=== PATIENT | female | born 1985 | race Caucasian/White ===

== ENCOUNTER 2018-08-01 13:08 | Outpatient (CLI) | payer MEDICAID ==
[~2018-08-01] VITALS: Ht 149.9 cm; Wt 70.0 kg
[~2018-08-01 13:08] MED LIST: CETI10CA PO; DM/P295L11 PO; GUAI118L22 PO; GUAI118L94 PO; HYDR-3498 PO; IBUP-1542 PO; NIFE10CA PO; ONDA4TAB35 PO; PRENAT PO
[2018-08-01 13:15] VITALS: Ht 149.9 cm; Wt 70.0 kg
--- NOTE | 2018-08-01 15:56 | TRIAGE ---
OB Triage Datetime Report Generated by CPN: 08/01/2018 15:56 Datetime: 08/01/2018 15:52 Stage of : OB Triage Maternal Assessment Level of Consciousness: Fully Conscious DTR's/Clonus: DTRs 1+ Headache: Denies Breath Sounds, Left: Clear and Equal Breath Sounds, Right: Clear and Equal Nausea/Vomiting: Denies RUQ Epigastric Pain: Denies Labor Evaluation Frequency: X2 Monitor Mode: External Duration (sec)2399: 80-110 Quality: Mild Pattern: Normal: <= 5 Contractions in 10 Minutes Resting Tone [place]: Relaxed Heart Rate FHR Baseline Rate: 135 Monitor Mode: External US Variability: Moderate 6-25 bpm Accelerations: 15X15 Decelerations: None Pain Assessment Pain Scale: 0 Pain Presence: None/Denies Pain Type: N/A Pain Goal: 3 Vaginal Exam Membrane Status: Intact Datetime: 08/01/2018 15:38 Maternal Assessment Level of Consciousness: Fully Conscious DTR's/Clonus: DTRs 1+ Headache: Denies Blurred Vision: No Respiratory Effort: Unlabored Breath Sounds, Left: Clear and Equal Breath Sounds, Right: Clear and Equal Nausea/Vomiting: Denies RUQ Epigastric Pain: Denies Facial Edema: None Labor Evaluation Frequency: X2 Monitor Mode: External Duration (sec)2399: 80-110 Quality: Mild Pattern: Normal: <= 5 Contractions in 10 Minutes Resting Tone [place]: Relaxed Heart Rate FHR Baseline Rate: 135 Monitor Mode: External US Variability: Moderate 6-25 bpm Accelerations: 15X15 Decelerations: None Category: Category I Pain Assessment Pain Scale: 0 Pain Presence: None/Denies Pain Type: N/A Pain Goal: 3 Vaginal Exam Membrane Status: Intact Datetime: 08/01/2018 13:06 Time of Arrival: 08/01/2018 13:06 EGA: 34.5 Arrived By: Ambulatory Arrived From: Home Chief Complaint: PT CAME IN FOR NST AND BPP FOR ELEVATED INHIBIN, DENIES ANY PROBLEM AT THIS TIME A ND STATES + FM Movement: Present Contractions: Denies/Absent Rupture of Membranes: Denies Vaginal Discharge: Denies Recent Sexual Intercouse: Denies Abdominal Trauma: Not Applicable Additional Patient Complaints: NONE Time Provider Notified: 08/01/2018 13:30 Provider Notified: NOMI Initial Plan: NST AND BPP
--- NOTE | 2018-08-01 15:59 | PN ---
Triage Information Date/Time August 01, 2018 Reason for visit: elevated inhibin Weeks of Gestation 34w 5d /Para 3/2 Diabetes: none Hypertention: none Additional information PMHx: none. POBHx: x 2. PSHx: none. NKDA Objective BP 101/54 T= 98.6 Heart Rate: 130's Heart Rate Comments Accels to 150 BPM. No decels. Contractions: >10 Minutes Apart (2 UC's in one hour.) Results/Medications Imaging Results BPP 8/8 with an AVL of 13.9 cm VTX. Disposition: Discharge Assessment/Plan A: IUP at 34w 5d. Elevated inhibin. P: PT to be d/c'ed home and to f/u at the NST as scheduled 08/03. kick counts reviewed with the pt. LEI KWONG MD August 01, 2018 15:59
== END 2018-08-01 15:55 | disposition home or self-care (01) ==
LOC: OBT 13:08 → L-D 13:09 → OBT 15:55
PROVIDERS: ATTEND Obstetrics & Gynecology
DX: O12.13 Gestational proteinuria, third trimester (principal); Z3A.34 34 weeks gestation of pregnancy
CPT/HCPCS: 76818; Z7500; G0463

== ENCOUNTER 2018-08-16 13:16 | Inpatient (IN) | payer MEDICAID ==
[~2018-08-16] VITALS: Ht 149.9 cm; Wt 71.4 kg
[~2018-08-16 13:16] MED LIST changes: -CETI10CA PO; -DM/P295L11 PO; -GUAI118L22 PO; -GUAI118L94 PO; -HYDR-3498 PO; -IBUP-1542 PO; -NIFE10CA PO; -ONDA4TAB35 PO
--- NOTE | 2018-08-16 13:21 | NSTRPT ---
NST Information Datetime Report Generated by CPN: 08/16/2018 13:20 Datetime: 08/13/2018 10:40 NST Information EGA: 36.3 Test Number: 7 Time on Monitor: 08/13/2018 10:57 Time off Monitor: 08/13/2018 11:27 NST Duration (Min): 30 Reason for NST: Other Reason for NST Other: Elevated Inhibin Test and Monitor Explained: Monitor Explained; Test Explained; Verbalized Understanding Pulse: 100 Resp: 18 SBP: 102 DBP: 59 Test Evaluation NST Interventions: None Patient States Movement: Present Contraction Frequency: none FHR Baseline : 130 Variability: Moderate 6-25bpm Accelerations: 15X15 Decelerations: None FHR Category: Category I NST Results: Reactive Comments: PT TO U/S VAL 11.9 CM CEPHALIC Electronically Signed By E-Signature: with User ID: [id number] Datetime: 08/10/2018 10:30 NST Information EGA: 36.0 NST Duration (Min): 29 Datetime: 08/06/2018 13:33 NST Information EGA: 35.3 NST Duration (Min): 28 Datetime: 08/03/2018 08:24 NST Information EGA: 35.0 NST Duration (Min): 52 Datetime: 07/30/2018 08:22 NST Information EGA: 34.3 NST Duration (Min): 40 Datetime: 07/27/2018 08:42 NST Information EGA: 34.0 NST Duration (Min): 24 Datetime: 07/23/2018 09:45 NST Information EGA: 33.3 NST Duration (Min): 29
[2018-08-16 13:55] VITALS: BP 84/53; PULSE 92; RESP 18
[2018-08-16] MEDS ORDERED: CALC600T24 PO (13:57)
[2018-08-16] MEDS ORDERED: URSO300C3 PO (13:59)
[2018-08-16] MEDS ORDERED: CETI5SOL PO (13:59)
--- NOTE | 2018-08-16 19:05 | HP ---
Date/Time of Note Date/Time of Note DATE: 08/16/18 TIME: 19:00 OB - History Hx of Present Free Text/Dictation 32-year-old female 3 para 2 admitted for observation and antepartum testing because of elevated bile acids during and during antepartum testing had heart tone deceleration Last Menstrual Period: Dec 01, 2017 Estimated Due Date: Sep 07, 2018 : 3 Para: 2 Care: Good Care Ultrasounds: Normal mid trimester US Obstetrical Complications: Other (Elevated inhibin level) Medical Complications: None Past Family/Social History * Past Medical, Surgical, Family and Obstetric Histories reviewed from chart. Blood Type: O+ Rubella: immune RPR/VDRL: Negative GBS Status: Unknown HBsAG: Negative OB Admission Exam Vital Signs Vital Signs Vital Signs Date Temp Pulse Resp B/P (MAP) Pulse Ox O2 O2 Flow FiO2 Time Delivery Rate 08/16/18 97.7 92 18 84/53 (63) 96 Room Air 13:55 Physical Exam HEENT: WNL Heart: Rhythm Normal Lungs: Clear, Equal Abdomen: WNL Extremities: Normal Reflexes: Normal Cervical Dilatation: None Effacement: 0% Station: -3 Membranes: Intact Heart Rate: 140's Accelerations: Accelerations Present Decelerations: No Decelerations Varibility: Marked Contractions on Admission: None Last 72 hours Lab Results CBC & BMP 08/16/18 15:00 Liver Function Test 08/16/18 15:00 Alanine Aminotransferase (ALT/SGPT) 16 Albumin 3.3 Alkaline Phosphatase 136 H Aspartate Amino Transf (AST/SGOT) 22 Direct Bilirubin 0.00 Total Protein 6.8 OB Assessment/Plan Other Assessment: Cholestasis of 36 and 5 or 36 and 6 days gestation Other plan: Will induce labor at 37 weeks Continue in-house observation YANNI HARVEY MD Aug 16, 2018 19:05
[2018-08-16] MEDS ORDERED: BUTORPHANOL 2 MG INJ IV PRN (19:30)
[2018-08-16] MEDS ORDERED: METHYLERGONOVINE 0.2 MG INJ IM PRN (19:30)
[2018-08-16] MEDS ORDERED: LIDOCAINE 1% (MPF) 30 ML INJ INJ PRN (19:30)
[2018-08-16] MEDS ORDERED: IBUPROFEN 600 MG TAB PO PRN (19:30)
[2018-08-16] MEDS ORDERED: OXYTOCIN 30 UNITS/LR 500 ML IV PRN (19:30)
[2018-08-16] MEDS ORDERED: CARBOPROST 250 MCG INJ IM PRN (19:30)
[2018-08-16] MEDS ORDERED: OXYTOCIN 30 UNITS/LR 500 ML IV SCH ×2 (19:30)
[2018-08-16] MEDS ORDERED: MISOPROSTOL 200 MCG TAB PR PRN (19:30)
[2018-08-16] MEDS: LACTATED RINGER'S 1,000 ML IV SCH ×2 (21:00→23:07)
[2018-08-16] MEDS: COLESEVELAM 625 MG TAB PO SCH (21:00)
[2018-08-16] MEDS: URSODIOL 300 MG CAP PO SCH (21:00)
[2018-08-16] MEDS ORDERED: LACTATED RINGER'S 1,000 ML IV PRN (21:03)
[2018-08-17] MEDS: COLESEVELAM 625 MG TAB PO SCH ×2 (02:59→10:06)
[2018-08-17] MEDS: LACTATED RINGER'S 1,000 ML IV SCH ×2 (07:00→16:40)
[2018-08-17] MEDS: URSODIOL 300 MG CAP PO SCH (09:50)
[2018-08-17] MEDS ORDERED: DIPHENHYDRAMINE 50 MG INJ IV PRN (11:00)
[2018-08-17] MEDS: MISOPROSTOL 50 MCG CAPSULE PO SCH ×4 (11:32→23:30)
--- NOTE | 2018-08-17 14:04 | CONS ---
DATE OF ADMISSION: 08/16/2018 DATE OF CONSULTATION: 08/17/2018 HISTORY OF PRESENT ILLNESS: The patient is currently at 37 weeks, was admitted secondary to generali zed itching. Her bio panel apparently is normal, so is her liver function tests; however. Given the gestational age and possibility of cholestasis, as I cannot see any other reason for her generalized itching, I do recommend delivery secondary to risk of IUFD. Dictated By: AXEL LEYVA MD [facility] Conf#: [id number] DID#: [id number] CC: YANNI HARVEY MD;*EndCC*
--- NOTE | 2018-08-17 14:58 | PN ---
Date/Time of Note Date/Time of Note DATE: 08/17/18 TIME: 14:56 OB Subjective Subjective Subjective Complaint of minimal uterine contractions OB Objective Objective Objective Vital signs are stable in general physical exam is unchanged Cervix is long and 1 cm Perinatologist was contacted in regards to normal levels of bile acids and normal CMP and existence of one variable deceleration upon entry to the hospital Recommended delivery regardless because of symptomatic patient and existence of variable deceleration of heart tones at 37 weeks OB Assessment/Plan Reason for admission: induction of labor Other Assessment: 37+ weeks gestation in variable deceleration of heart tones with a possible elevated bile acids Other plan: Continue with Cytotec induction of labor YANNI HARVEY MD Aug 17, 2018 14:58
[2018-08-18] MEDS ORDERED: OXYTOCIN 30 UNITS/LR 500 ML IV SCH (00:57)
[2018-08-18] MEDS: LACTATED RINGER'S 1,000 ML IV* SCH ×5 (00:57→19:36)
--- NOTE | 2018-08-18 00:57 | LDN ---
Date/Time of Note Date/Time of Note DATE: 08/18/18 TIME: 00:55 Delivery Summary Weeks of Gestation Term gestation Placenta Delivered: Spontaneously Meconium: none Episiotomy: No Anesthesia type: None Estimated blood loss: 100 Sponge & Needle done & correct: Yes All needle counts correct: Yes Any foreign bodies felt in the: No Delivery Information Sex Sex: female Apgars 1 Minute: 8 5 Minute: 9 Suctioning Nose & mouth suctioned at helen: Yes Delee suction performed: No Umbilical Cord Umbilical cord with: 3 Vessels Cord presentations: no nuchal cord Cord Blood was obtained: Yes Mother & Baby Disposition Disposition Baby's weight 6 pounds 9 ounces/ 2990 g Mom & Baby to Maternity; Good: Yes Baby to NICU: No Copies To: CC: YANNI HARVEY MD ; LORRAINE PLUMMER MD Aug 18, 2018 00:57
[2018-08-18] MEDS ORDERED: BENZOCAINE 20% 56 ML SPRAY TOP PRN (01:00)
[2018-08-18] MEDS ORDERED: ACETAMINOPHEN 325 MG TAB PO PRN ×2 (01:00)
[2018-08-18] MEDS ORDERED: SENNA/DOCUSATE NA (8.6MG/50MG) TAB PO PRN (01:00)
[2018-08-18] MEDS ORDERED: CARBOPROST 250 MCG INJ IM PRN (01:00)
[2018-08-18] MEDS ORDERED: METHYLERGONOVINE 0.2 MG INJ IM PRN (01:00)
[2018-08-18] MEDS ORDERED: ONDANSETRON 4 MG INJ IV PRN (01:00)
[2018-08-18] MEDS ORDERED: OXYTOCIN 30 UNITS/LR 500 ML IV PRN (01:00)
[2018-08-18] MEDS ORDERED: MAGNESIUM HYDROXIDE 30ML CUP PO PRN (01:00)
[2018-08-18] MEDS ORDERED: WITCH HAZEL/GLYCERIN PAD PR PRN (01:00)
[2018-08-18] MEDS ORDERED: LANOLIN HPA 1 PKT TOP PRN (01:00)
[2018-08-18] MEDS ORDERED: MISOPROSTOL 200 MCG TAB PR PRN (01:00)
[2018-08-18] MEDS ORDERED: DIBUCAINE 1% 30 GM OINT TOP PRN (01:00)
[2018-08-18] MEDS ORDERED: OXYCODONE/ASPIRIN (4.88/325) TAB PO PRN ×2 (02:00)
[2018-08-18 02:10] VITALS: BP 116/56; PULSE 67; RESP 18
[2018-08-18 08:00] VITALS: BP 94/50; PULSE 74; RESP 18
[2018-08-18] MEDS: IBUPROFEN 600 MG TAB PO PRN ×2 (10:03→17:25)
[2018-08-18 15:33] VITALS: BP 99/50; PULSE 68; RESP 20
[2018-08-18 21:15] VITALS: BP 104/64; PULSE 65; RESP 18
[2018-08-19 04:00] VITALS: BP 99/55; PULSE 55; RESP 17
[2018-08-19] MEDS: IBUPROFEN 600 MG TAB PO PRN ×2 (05:30→15:55)
[2018-08-19 09:54] VITALS: BP 122/78; PULSE 59
--- NOTE | 2018-08-19 13:25 | DS ---
Date/Time of Note Date/Time of Note Home today or next day DATE: 08/19/18 TIME: 13:22 Obstetrical Discharge Record Final Diagnosis Final Diagnosis: Term delivered Other Final Diagnosis Status post vaginal delivery Vaginal Delivery Obstetrical Delivery: Spontaneous Complications Augmentation: Yes Induction: Yes Condition on Discharge Physical Assessment Last Vitals: See nurse's note Voiding: Yes Bowel Movement: Yes Breast: Soft, non-tender, Filling Fundus: Firm Abdomen and Incision: Abdomen is soft fundus is firm Episiotomy: Perineum is clean Calf Tenderness: No Patient Condition: Good YANNI HARVEY MD Aug 19, 2018 13:25
--- NOTE | 2018-08-19 13:26 | PD.PPDC ---
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 Discharge Instruction Provider Information Physician Information See nurse's notes Diagnosis Ibibo2Lb Final Diagnosis: Thdvl4l Status post vaginal delivery Condition [id number] Patient Condition: Jzbpt6u Good Diet Idlqi1Fp Diet: Qqgug3k Resume Regular Diet Activity/Restrictions [id number] Activity: [id number] Normal Activity May Shower Oyhez2Za Restrictions: Omulo4i Nothing in the Vagina [id number] Return to Work or School: Oezwz5c Oct 04, 2018 Follow-up Follow-up with Physician: 2, 4, Week/Weeks (Clinic) Return to clinic for [id number] OB Instructions: Rqmzd4b Breast Tenderness Depression Comment: Pelvic rest for 6 YANNI HARVEY MD Aug 19, 2018 13:26
[2018-08-19] MEDS ORDERED: IBUP-1542 PO (13:27)
[2018-08-19 16:43] VITALS: BP 139/183; PULSE 80; RESP 18
[2018-08-19 20:15] VITALS: BP 107/54; PULSE 65; RESP 18
[2018-08-20] MEDS: IBUPROFEN 600 MG TAB PO PRN ×3 (00:03→12:38)
[2018-08-20 03:26] VITALS: BP 117/57; PULSE 63; RESP 17
[2018-08-20 08:45] VITALS: BP 107/53; PULSE 65; RESP 18
--- NOTE | 2018-08-21 16:38 | DELSUM ---
Delivery Summary A-C Datetime Report Generated by CPN: 08/21/2018 16:38 DELIVERY PERSONNEL Internal Sales Engineer: Brandi Murray MATERNAL INFORMATION Delivery Anesthesia: None Medications in Delivery: 30U PITOCIN WITH LR Delivery QBL (ml): 100 Placenta Cultured: No Maternal Complications: Other Other Maternal Complications: CHOLEOSTASIS LABOR SUMMARY EDC: 09/07/2018 00:00 No. Babies in Womb: 1 Attempted: No Labor Anesthesia: None LABOR INFORMATION Reason for Induction: Not Applicable Reason for Induction- Other: CHOLESTASIS Onset of Labor: 08/17/2018 11:30 Complete Dilatation: 08/18/2018 00:19 Cervical Ripening Agents: Cytotec @ Oxytocin: N/A Group B Beta Strep: Negative Antibiotics # of Doses: 0 Steroids Given: None Reason Steroids Not Administered: Not Applicable MEMBRANES Membranes Rupture Method: Artificial Rupture of Membranes: 08/18/2018 00:31 Length of Rupture (hr): 0.05 Amniotic Fluid Color: Clear Amniotic Fluid Amount: Moderate Amniotic Fluid Odor: None STAGES OF LABOR Stage 1 hr: 12 Stage 1 min: 49 Stage 2 hr: 0 Stage 2 min: 15 Stage 3 hr: 0 Stage 3 min: 5 Total Time in Labor hr: 13 Total Time in Labor min: 9 VAGINAL DELIVERY Episiotomy: None Laceration Extension: N/A Laceration Type: None Laceration Repair: Not Applicable Initial Vag Sponge Count: 10 Final Vag Sponge Count: 10 Initial Vag Sharps Count: 1 Final Vag Sharps Count: 1 Sponge Count Correct: Yes; Vaginal Sweep Performed Sharps Count Correct: Yes BABY A INFORMATION Infant Delivery Date/Time: 08/18/2018 00:34 Method of Delivery: Vaginal Born in Route : No : N/A Forceps: N/A Vacuum Extraction: N/A Shoulder Dystocia : N/A SHOULDER DYSTOCIA BABY A Infant Delivery Date/Time: 08/18/2018 00:34 PRESENTATION/POSITION BABY A Presentation: Cephalic Cephalic Presentation: Vertex Vertex Position: Left Occipital Anterior Breech Presentation: N/A PLACENTA INFORMATION BABY A Placenta Delivery Time : 08/18/2018 00:39 Placenta Method of Delivery: Spontaneous Placenta Status: Delivered SCORES BABY A Heart Rate 1 min: >100 bpm Resp Effort 1 min: Good Cry Reflex Irritability 1 min: Cough/Sneeze/Pulls Away Muscle Tone 1 min: Active Motion Color 1 min: Blue/Pale Resuscitation Effort 1 min: Tactile Stimulation SCORE 1 MIN: 8 Heart Rate 5 min: >100 bpm Resp Effort 5 min: Good Cry Reflex Irritability 5 min: Cough/Sneeze/Pulls Away Muscle Tone 5 min: Active Motion Color 5 min: Body [place], Extremit Blue Resuscitation Effort 5 min: Tactile Stimulation SCORE 5 MIN: 9 INFORMATION BABY A Gestational Age at Delivery: 37.1 Gestational Status: Early Term- 37- 38.6 Weeks Infant Outcome : Liveborn Condition : Stable Sex: Female IDENTIFICATION/MEDS BABY A ID Band Number: [id number] ID Band Location: Right Leg; Left Arm Sensor Applied: Yes Sensor Number: [id number] Sensor Location : Cord Clamp Vitamin K Given : Not Given Erythromycin Given: Not Given WEIGHT/LENGTH BABY A Infant Birthweight (gm): 2990 Weight (lb): 6 Weight (oz): 9 Infant Length (in): 18.75 Infant Length (cm): 47.63 CORD INFORMATION BABY A No. Cord Vessels: 3 Nuchal Cord : N/A Cord Blood Taken: Yes Infant Suction: Mouth; Nose ASSESSMENT BABY A Complications: None Physical Findings at Delivery: Within Normal Limits Respirations: Appears Normal Assistant Store Manager/ALS Called : No Infant Care By: JOYCE RN / RT Transferred To: Remains with Mother
== END 2018-08-20 16:38 | disposition home or self-care (01) | DRG 807 ==
LOC: OBT 13:16 → L-D 13:16 → OBT 18:30 → L-D 19:46 → PP1 08-18 02:04
PROVIDERS: ADMIT Obstetrics & Gynecology; ATTEND Obstetrics & Gynecology
PROC: 10E0XZZ Delivery of Products of Conception, External Approach (ICD-10-PCS; principal; 2018-08-18)
DX: O80 Encounter for full-term uncomplicated delivery (principal); Z37.0 Single live birth; Z3A.37 37 weeks gestation of pregnancy
CPT/HCPCS: 76818; 80053; 85025; 85610; 85730; 86592; 86850; 86900; 86901; 87340; 99464; G0463; J0595; J2590; J7120